=== PATIENT | female | born 1970 | race Caucasian/White ===

== ENCOUNTER 2022-03-21 15:37 | Outpatient (CLI) | payer BC, SELFPAY ==
[2022-03-21 22:07] LABS: Chloride* 99 mmol/L (96-114); Potassium* 4.6 mmol/L (3.6-5.1); Sodium* 138 mmol/L (135-149)
[2022-03-21 22:10] LABS: Blood Urea Nitrogen* 12 mg/dL (7-30); Carbon Dioxide* 30 mmol/L (20-32); Cholesterol* 221 mg/dL (90-199); Creatinine* 0.7 mg/dL (0.5-1.5); Estimated Glomerular Filt Rate 105 ml/min; Glucose* 89 mg/dL (60-115); Triglycerides* 56 mg/dL (40-149)
[2022-03-21 22:11] LABS: HDL Cholesterol* 82 mg/dL (>=50); LDL Cholesterol Calculated 128 mg/dL (<100)
== END 2022-03-21 15:38 | disposition home or self-care (01) ==
PROVIDERS: PCP Emergency Medicine; Visit Provider Emergency Medicine
DX: Z01.419 Encounter for gynecological examination (general) (routine) without abnormal findings (principal); I10 Essential (primary) hypertension; R21 Rash and other nonspecific skin eruption; L02.91 Cutaneous abscess, unspecified; Z13.6 Encounter for screening for cardiovascular disorders
CPT/HCPCS: 80048; 80061; 86618; 87070

== ENCOUNTER 2022-05-06 07:22 | Outpatient (CLI) | payer BC, SELFPAY ==
--- NOTE | 2022-05-06 07:45 | CRLHL7_ITS ---
For Patients: As a result of the Century Cures Act, medical imaging exams and procedure reports are released immediately into your electronic medical record. You may view this report before your referring provider. If you have questions, please contact your health care provider. BILATERAL SCREENING MAMMOGRAM WITH COMPUTER-AIDED DETECTION AND TOMOSYNTHESIS TECHNIQUE: CC and MLO views were obtained. These mammographic images have been obtained using full-field digital technique. These mammographic images were interpreted with the benefit of computer-aided detection. Breast Tomosynthesis was used in this interpretation. COMPARISON FILM: 04/24/21, 03/27/20, 05/25/19. FINDINGS: There are scattered areas of fibroglandular density IMPRESSION: There is no radiographic evidence for malignancy. ASSESSMENT: BI-RADS Category 1: Negative RECOMMENDATION: Routine screening mammogram in 1 year. A lay language report of this examination will be provided to the patient. Julito Salazar M.D. Diagnostic Radiologist [email or web address] MARCO/Dictated by: Julito Salazar MD @ 05/06/2022 9:51:00 AM (Electronically Signed)
== END 2022-05-06 07:23 | disposition home or self-care (01) ==
LOC: MAMMO 07:22
PROVIDERS: PCP Emergency Medicine; Visit Provider Emergency Medicine
DX: Z12.31 Encounter for screening mammogram for malignant neoplasm of breast (principal)
CPT/HCPCS: 77063; 77067

== ENCOUNTER 2022-08-06 09:49 | Outpatient (CLI) | payer BC, SELFPAY ==
[2022-08-09 08:57] LABS: Sex Hormone Binding Globulin 101 nmol/L (17-125); Testosterone Bioavailable 10.4 ng/dL (2.8-16.5); Testosterone, Free LC-MS/MS 3.7 pg/mL (1.1-5.8); Testosterone, LC-MS/MS 47 ng/dL (9-55)
== END 2022-08-06 09:50 | disposition home or self-care (01) ==
LOC: LKVREF 09:49
PROVIDERS: PCP Emergency Medicine; Visit Provider Emergency Medicine
DX: L68.0 Hirsutism (principal)
CPT/HCPCS: 84270; 84402; 84403

== ENCOUNTER 2023-05-20 17:32 | Outpatient (CLI) | payer BC, SELFPAY ==
--- NOTE | 2023-05-20 18:00 | CRLHL7_ITS ---
For Patients: As a result of the Cures Act, medical imaging exams and procedure reports are released immediately into your electronic medical record. You may view this report before your referring provider. If you have questions, please contact your health care provider. BILATERAL SCREENING MAMMOGRAM WITH COMPUTER-AIDED DETECTION AND TOMOSYNTHESIS TECHNIQUE: CC and MLO views were obtained. These mammographic images have been obtained using full-field digital technique. These mammographic images were interpreted with the benefit of computer-aided detection. Breast Tomosynthesis was used in this interpretation. COMPARISON FILM: 05/06/22, 04/24/21, 03/27/20. FINDINGS: There are scattered areas of fibroglandular density IMPRESSION: There is no radiographic evidence for malignancy. ASSESSMENT: BI-RADS Category 1: Negative RECOMMENDATION: Routine screening mammogram in 1 year. A lay language report of this examination will be provided to the patient. Julito Salazar M.D. Diagnostic Radiologist [email or web address] ELAINA/petey Transcribed: 6:44 p.mLi angelo/Dictated by: Julito Salazar MD @ 05/21/2023 1:00:00 PM (Electronically Signed)
== END 2023-05-20 17:33 | disposition home or self-care (01) ==
LOC: MAMMO 17:33
PROVIDERS: PCP Emergency Medicine; Visit Provider Emergency Medicine
DX: Z12.31 Encounter for screening mammogram for malignant neoplasm of breast (principal); Z00.00 Encounter for general adult medical examination without abnormal findings; E78.5 Hyperlipidemia, unspecified; I10 Essential (primary) hypertension; K14.6 Glossodynia
CPT/HCPCS: 77063; 77067; 80048; 80061; 82607

== ENCOUNTER 2023-07-10 08:18 | Outpatient (CLI) | payer BC, SELFPAY ==
--- OUTSIDE RECORDS SUMMARY | 2023-07-10 08:23 | XMS_ITS | Encounter Summary ---
Author Name Unknown Organization [place] Address [address] [place] [address] Care Team Providers Care Kiln Charger Name Role Phone [facility] Primary Care Provider Liz Mena PA-C Unavailable [phone] Liz Mena PA-C Unavailable [phone] Encounter Details Date Type Department Care Team (Late st Contact Info) Description 04/09/2022 MyC Medical Advice [facility] [address] [address] Liz Mena PA-C [address] [place] [address] Social History Tobacco Use Types Packs/Day Years Used Date Smoking Tobacco: Never Smokeless Tobacco: Never Alcohol Use Standard Drinks/Week Comments Not Asked 0 (1 standard drink = 0.6 oz pur e alcohol) Sex and Gender Information Value Date Recorded Sex Assigned at Not on file Gender Identity Not on file Sexual Orientation Not on file COVID-19 Exposure Response Date Recorded In the last 10 days, have yo u been in contact with someone who was confirmed or suspected to have Coronavirus/COVID-19? No / Unsure 04/12/2022 2:46 PM CDT documented as of this encounter Plan of Treatment Not on file documented as of this encounter Visit Diagnoses Not on filedocumented in this encounter Care Teams Kiln Charger Relationship Specialty Start Date End Date [facility] [address] [place] [address] PCP - General 03/25/22 Liz Mena PA-C [address] [place] [address] Physician Life Insurance Sales Dermatology 04/05/22 Liz Mena PA-C [address] [place] [address] Assigned Surgical Provider 04/13/22 documented as of this encounter
--- OUTSIDE RECORDS SUMMARY | 2023-07-10 08:23 | XMS_ITS | Referral Summary ---
Author Name Unknown Organization [place] Address [address] [place] [address] Care Team Providers Care Chauffeur Motorbus Name Role Phone [facility], [facility] Primary Care Provider Liz Mena PA-C Unavailable Liz Mena PA-C Unavailable [phone] Allergies Active Allergy Reactions Criticality Noted Date Comments Cefuroxime Axetil 03/18/2011 Amoxicillin Trihydrate 03/18/2011 Medications Medication Sig Dispensed Refills Start Date End Date Status lisinopril (PRINIVIL,ZESTRIL) 20 MG tablet Take 20 mg by mouth daily. 0 Active Etanercept (ENBREL SC) Inject 50 mg Subcutaneous every 7 days Friday 0 Active ORDER FOR DMEIndications:Foot injury Please dispense one pair of crutches. Use as directed. 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 1 tab po daily 21 tablet 0 04/12/2022 Active sulfamethoxazole-tr imethoprim (BACTRIM DS) 800-160 MG tabletIndications:P yoderma 1 tab po bid 14 tablet 0 04/16/2022 Active Active Problems Problem Noted Date Diagnosed Date Vulvar cellulitis 03/28/2022 Social History Tobacco Use Types Packs/Day Years Used Date Smoking Tobacco: Never Smokeless Tobacco: Never Tobacco Cessation:Counseling Given: Not Answered Alcohol Use Standard Drinks/Week Comments Not Asked 0 (1 standard drink = 0.6 oz pur e alcohol) Adolescent Education Answer Date Record ed Getting School Help Needed Not on file 03/30 Sex and Gender Information Value Date Recorded Sex Assigned at Not on file Gender Identity Not on file Sexual Orientation Not on file Last Filed Vital Signs Vital Sign Reading Time Taken Comments Blood Pressure 127/89 04/04/2022 7:21 AM CDT Pulse 69 04/04/2022 7:21 AM CDT Temperature 36.6 ??C (97.8 ??F) 04/04/2022 7:21 AM CD T Respiratory Rate 18 04/04/2022 7:21 AM CDT Oxygen Saturation 99% 04/04/2022 7:21 AM CDT Inhaled Oxygen Concentration - - Weight 92.1 kg (203 lb) 03/30/2022 6:35 AM CDT Height 161.3 cm (5' 3.5) 03/28/2022 1:00 PM CDT Body Mass Index 35.4 03/28/2022 1:00 PM CDT Plan of Treatment Not on file Advance Directives For more information, please contact: [phone] Latest Code Status on File Code Status Date Activated Date Inactivated Comments Full Code 03/28/2022 2:04 AM 04/04/2022 6:38 PM All basic and advanced life-sustaining interventions are performed as appropriate Question Answer Comments Code status determined by: Discussion with patient/ legal decision maker Care Teams Chauffeur Motorbus Relationship Specialty Start Date End Date [facility], [address] [address] PCP - General 03/25/22 Liz Mena PA-C [address] [place] [address] Physician Funeral Car Driver Dermatology 04/05/22 Liz Mena PA-C [address] [place] [address] Assigned Surgical Provider 04/13/22
--- OUTSIDE RECORDS SUMMARY | 2023-07-10 08:23 | XMS_ITS | Clinical Summary ---
Author Name Unknown Organization [place] Address [address] [place] [address] Care Team Providers Care Sofa Back Upholsterer Name Role Phone [facility], [facility] Primary Care Provider Liz Mena PA-C Unavailable Liz Mena PA-C Unavailable [phone] Allergies Active Allergy Reactions Criticality Noted [...] 03/28/2022 1:00 PM CDT Plan of Treatment Health Maintenance Due Date Last Done Comments ADVANCE CARE PLANNING 1970 ANNUAL REVIEW OF HM ORDERS 1971 CT COLONOGRAPHY 1971 FIT 1971 FLEX SIG 1971 HEPATITIS B IMMUNIZATION (1 of 3 - 3-dose series) 1971 YEARLY PREVENTIVE VISIT 1971 sDNA (Cologuard) 1971 COLONOSCOPY 1981 COLORECTAL CANCER SCREENING 1981 HIV SCREENING 1986 HEPATITIS C SCREENING 1989 ZOSTER IMMUNIZATION (1 of 2) 1990 Pneumococcal Vaccine: Pediatrics (0 to 5 Years) and At-Risk Patients (6 to 64 Years) (2 of 2 - PPSV23 or PCV20) 06/06/2015 04/11/2015 MAMMO SCREENING 04/20/2016 04/20/2015, 11/14, 05/05/2012, Additional history exists LIPID 2016 COVID-19 Vaccine (3 - Moderna risk series) 07/03/2021 06/05/2021, 07/28/2020 INFLUENZA VACCINE (#1) 2023 0, 05/01/2001, 05/01/2001 PHQ-2 (once per calendar year) 2023 PAP 05/08/2024 05/08/2021, 05/08/2021 DTAP/TDAP/TD IMMUNIZATION (2 - Td or Tdap) 03/25/2027 03/25/2017 HPV IMMUNIZATION Aged Out No longer e ligible based on patient's age to complete this topic IPV IMMUNIZATION Aged Out No longer e ligible based on patient's age to complete this topic MENINGITIS IMMUNIZATION Aged Out No l onger eligible based on patient's age to complete this topic RSV MONOCLONAL ANTIBODY Aged Out No l onger eligible based on patient's age to complete this topic Advance Directives For more information, please contact: [phone] Latest Code Status on File Code Status Date Activated Date Inactivated Comments Full Code 03/28/2022 2:04 AM 04/04/2022 6:38 PM All basic and advanced life-sustaining interventions are performed as appropriate Question Answer Comments Code status determined by: Discussion with patient/ legal decision maker Care Teams Sofa Back Upholsterer Relationship Specialty Start Date End Date [facility], [address] [address] PCP - General 03/25/22 Liz Mena PA-C [address] [place] [address] Physician Phosphorus Processing Supervisor Dermatology 04/05/22 Liz Mena PA-C [address] [place] [address] Assigned Surgical Provider 04/13/22
== END 2023-07-10 08:19 | disposition home or self-care (01) ==
PROVIDERS: PCP Emergency Medicine; Visit Provider Emergency Medicine
DX: N91.2 Amenorrhea, unspecified (principal); Z11.3 Encounter for screening for infections with a predominantly sexual mode of transmission
CPT/HCPCS: 83001; 86592; 86703; 86706; 86803; 87491; 87591

== ENCOUNTER 2024-04-29 08:36 | Outpatient (CLI) | payer BC, SELFPAY ==
--- OUTSIDE RECORDS SUMMARY | 2024-04-29 08:39 | XMS_ITS | Clinical Summary ---
Author Organization [place] Address [address] [place] [address] Care Team Providers Care Wash Crew Person Name Role Phone [facility] Primary Care Provider Liz Mena PA-C Unavailable [phone] Allergies Active Allergy Reactions Criticality Noted Date Comments Cefuroxime Axetil 03/18/2011 Amoxicillin Trihydrate 03/18/2011 Medications lisinopril (PRINIVIL,ZESTRI L) 20 MG tablet Take 20 mg by mouth daily. Active Etanercept (ENBREL SC) Inject 50 mg Subcutaneous every 7 days Friday Active ORDER FOR DMEIndications:F oot injury Please dispense one pair of crutches. Use as directed. 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 1 tab po daily 21 tablet 2 Active sulfamethoxazole -trimethoprim (BACTRIM DS) 800-160 MG tabletIndication s:Pyoderma 1 tab po bid 14 tablet 2 Active Active Problems Problem Noted Date Diagnosed Date Vulvar cellulitis 03/28/2022 Social History Tobacco Use Types Packs/Day Years Used Date Smoking Tobacco: Never Smokeless Tobacco: Never Tobacco Cessation:Counseling Given: Not Answered Alcohol Use Standard Drinks/Week Comments Not Asked 0 (1 standard drink = 0.6 oz pur e alcohol) Adolescent Education Answer Date Record ed Getting School Help Needed Not on file 03/30 Comments No Sex and Gender Information Value Date Recorded Sex Assigned at Not on file Legal Sex Female 3:14 AM SCIENTIFIC EDITOR Gender Identity Not on file Sexual Orientation [...] COLONOGRAPHY 1971 FIT 1971 FLEX SIG 1971 YEARLY PREVENTIVE VISIT 1971 sDNA (Cologuard) 1971 COLONOSCOPY 1981 COLORECTAL CANCER SCREENING 1981 HIV SCREENING 1986 HEPATITIS C SCREENING 1989 HEPATITIS B IMMUNIZATION (1 of 3 - 19+ 3-dose series) 1990 ZOSTER IMMUNIZATION (1 of 2) 1990 LIPID 2011 Pneumococcal Vaccine: Pediatrics (0 to 5 Years) and At-Risk Patients (6 to 64 Years) (2 of 2 - PPSV23 or PCV20) 06/06/2015 04/11/2015 MAMMO SCREENING 04/20/2017 04/20/2015, 11/14, 05/05/2012, Additional history exists COVID-19 Vaccine (3 - Moderna risk series) 07/03/2021 06/05/2021, 07/28/2020 PHQ-2 (once per calendar year) 2023 INFLUENZA VACCINE (#1) 2024 0, 05/01/2001, 05/01/2001 PAP 05/08/2024 05/08/2021, 05/08/2021 GLUCOSE 03/31/2025 03/31/2022, 03/16, 03/27/2022, Additional history exists DTAP/TDAP/TD IMMUNIZATION (2 - Td or Tdap) 03/25/2027 03/25/2017 RSV VACCINE (1 - 1-dose 75+ series) 2046 HPV IMMUNIZATION Aged Out No longer e ligible based on patient's age to complete this topic MENINGITIS IMMUNIZATION Aged Out No l onger eligible based on patient's age to complete this topic RSV MONOCLONAL ANTIBODY Aged Out No l onger eligible based on patient's age to complete this topic Procedures Procedure Name Priority Date/Time Associated Diagnosis Comments BASIC METABOLIC PANEL Routine 03/31/2022 6:22 AM CDT MA DIAGNOSTIC BILATERAL W/ CAROLE Routine 04/20/2015 2:12 PM SCIENTIFIC EDITOR Breast pain from Last 3 Months or Most Recently Relevant to Health Maintenance Results * (ABNORMAL) Basic metabolic panel (03/31/2022 6:22 AM CDT) Sodium 140 136 - 145 mmol/L 03/31/2022 7:28 AM CDT [facility] Potassium 4.2 3.4 - 5.3 mmol/L 03/31/2022 7:28 AM CDT [facility] Chloride 105 98 - 107 mmol/L 03/31/2022 7:28 AM CDT [facility] Carbon Dioxide (CO2) 29 22 - 29 mmol/L 03/31/2022 7:28 AM CDT [facility] Anion Gap 6(L) 7 - 15 mmol/L 03/31/2022 7:28 AM CDT [facility] Urea Nitrogen 7.2 6.0 - 20.0 mg/dL 03/31/2022 7:28 AM CDT LABORATORY Creatinine 0.78 0.51 - 0.95 mg/dL 03/31/2022 7:28 AM CDT LABORATORY Calcium 8.7 8.6 - 10.0 mg/dL 03/31/2022 7:28 AM CDT LABORATORY Glucose 86 70 - 99 mg/dL 03/31/2022 7:28 AM CDT [facility] GFR Estimate >90 >60 mL/min/1.7 3m2 03/31/2022 7:28 AM CDT LABORATORY Comment:Effective May 172020 eGFRcr in adults is calculated using the 2020 CKD-EPI creatinine equation which includes age and gender (Mack et al., NEJM, DOI: 10.1056/RQWAcg8188424) Blood STRUCTURE OF LEFT UPPER LIMB / Unknown Venipuncture / Unknown 03/31/2022 6:22 AM CDT 03/31/2022 7:02 AM CDT us Misai Daniella Mederos MD LAB - BLOOD ORDERABLES Valentine l Result LABORATORY [facility] [address] Lab (1st floor, no room number) [place] [address], [facility] [phone] * MA Diagnostic Bilateral w/Carole (04/20/2015 2:12 PM SCIENTIFIC EDITOR) Anatomical Region Laterality Modality Breast Bilateral Mammography Impressions 04/20/2015 2:21 PM SCIENTIFIC EDITOR IMPRESSION: BI-RADS CATEGORY: 1 - ??NEGATIVE. RECOMMENDED FOLLOW-UP: Annual Mammography. ENEDELIA FLORES MD Narrative 04/20/2015 2:21 PM SCIENTIFIC EDITOR MA DIAGNOSTIC BILATERAL W/ CAROLE, US BREAST LEFT LIMITED 1-3 QUADRANTS 04/20/2015 2:12 PM HISTORY: ??Pain in left breast. No palpable lumps. COMPARISON: ??11/23/13, 08/08/10 TECHNIQUE: ??Bilateral digital mammography with CAD is performed as well as bilateral DVT. In addition, directed left breast ultrasound was done. BREAST DENSITY: Scattered fibroglandular densities. BILATERAL MAMMOGRAM/DBT: ??No suspicious findings of malignancy. LEFT BREAST ULTRASOUND: Directed sonography is performed in the lateral half of the left breast as well as behind the nipple. No focal finding is seen. The patient should followup with her physician regarding her breast pain if it does not subside. Kehinde Urbina MD IMG MAMMOGRAPHY ORDERABLES F inal Result from Last 3 Months or Most Recently Relevant to Health Maintenance Insurance [facility] OUT OF STATE [facility] CLAIMS MANAGEMENT Advance Directives For more information, please contact: [phone] * Full Code (Latest Code Status on File) Date Activated Date Inactivated Comments 03/28/2022 2:04 AM 04/04/2022 6:38 PM All basic and advanced life-sustaining interventions are performed as appropriate Question Answer Comments Code status determined by: Discussion with patie nt/ legal decision maker Care Teams Wash Crew Person Relationship Specialty Start Date End Date [facility], [address] [address] PCP - General 03/25/22 Liz Mena, TERA [address] [place] [address] Physician [employer] Instruments Inspector Dermatology 04/05/22
--- OUTSIDE RECORDS SUMMARY | 2024-04-29 08:39 | XMS_ITS | Referral Summary ---
Author Organization [place] Address [address] [place] [address] Care Team Providers Care Pals Specialist Name Role Phone [facility] Primary Care Provider Liz Mena PA-C Unavailable [phone] Allergies Active Allergy Reactions Criticality Noted Date [...] on file Legal Sex Female 3:14 AM CREDIT AND COLLECTION MANAGER Gender Identity Not on file Sexual Orientation [...] CDT Plan of Treatment Not on file Procedures Procedure Name Priority Date/Time Associated Diagnosis Comments BASIC METABOLIC PANEL Routine 03/31/2022 6:22 AM CDT MA DIAGNOSTIC BILATERAL W/ CAROLE Routine 04/20/2015 2:12 PM CREDIT AND COLLECTION MANAGER Breast pain from Last 3 Months or Most Recently Relevant to Health Maintenance Results * (ABNORMAL) Basic metabolic panel (03/31/2022 6:22 AM CDT) Sodium 140 136 - 145 mmol/L 03/31/2022 7:28 AM CDT LABORATORY Potassium 4.2 3.4 - 5.3 mmol/L 03/31/2022 7:28 AM CDT [facility] Chloride 105 98 - 107 mmol/L 03/31/2022 7:28 AM CDT LABORATORY Carbon Dioxide (CO2) 29 22 - 29 mmol/L 03/31/2022 7:28 AM CDT LABORATORY Anion Gap 6(L) 7 - 15 mmol/L 03/31/2022 7:28 AM CDT LABORATORY Urea Nitrogen 7.2 6.0 - 20.0 mg/dL 03/31/2022 7:28 AM CDT LABORATORY Creatinine 0.78 0.51 - 0.95 mg/dL 03/31/2022 7:28 AM CDT LABORATORY Calcium 8.7 8.6 - 10.0 mg/dL 03/31/2022 7:28 AM CDT LABORATORY Glucose 86 70 - 99 mg/dL 03/31/2022 7:28 AM CDT LABORATORY GFR Estimate >90 >60 mL/min/1.7 3m2 03/31/2022 7:28 AM CDT LABORATORY Comment:Effective May 172020 eGFRcr in adults is calculated using the 2020 CKD-EPI creatinine equation which includes age and gender (Mack et al., NEJ, DOI: 10.1056/NICShg4900530) Blood STRUCTURE OF LEFT UPPER LIMB / Unknown Venipuncture / Unknown 03/31/2022 6:22 AM CDT 03/31/2022 7:02 AM CDT Elen Mederos MD LAB - BLOOD ORDERABLES Valentine l Result LABORATORY [facility] Lab [address] Lab (1st floor, no room number) [place] [address], [facility] [phone] * MA Diagnostic Bilateral w/Carole (04/20/2015 2:12 PM CREDIT AND COLLECTION MANAGER) Anatomical Region Laterality Modality Breast Bilateral Mammography Impressions 04/20/2015 2:21 PM CREDIT AND COLLECTION MANAGER IMPRESSION: BI-RADS CATEGORY: 1 - ??NEGATIVE. RECOMMENDED FOLLOW-UP: Annual Mammography. ENEDELIA FLORES MD Narrative 04/20/2015 2:21 PM CREDIT AND COLLECTION MANAGER MA DIAGNOSTIC BILATERAL W/ CAROLE, US BREAST [...] breast pain if it does not subside. us Kehinde Urbina MD IMG MAMMOGRAPHY ORDERABLES F inal Result from Last 3 Months or Most Recently Relevant to Health Maintenance Insurance [facility] OUT OF STATE [facility] CLAIMS MANAGEMENT Advance Directives For more information, please contact: [phone] * Full Code (Latest Code Status on File) Date Activated Date Inactivated Comments 03/28/2022 2:04 AM 04/04/2022 6:38 PM All basic and advanced life-sustaining interventions are performed as appropriate Question Answer Comments Code status determined by: Discussion with patie nt/ legal decision maker Care Teams Pals Specialist Relationship Specialty Start Date End Date [address] [address] PCP - General 03/25/22 Liz Mena, PALuciaC [address] [place] [address] Physician Meat Soaker Dermatology 04/05/22
--- OUTSIDE RECORDS SUMMARY | 2024-04-29 08:40 | XMS_ITS | Encounter Summary ---
Author Organization [place] Address [address] [place] [address] Care Team Providers Care Section Leader Screen Printing Name Role Phone [facility] Primary Care Provider Liz Mena PA-C Unavailable [phone] Liz Mena PA-C Unavailable [phone] Encounter Details Date Type Department Care Team (Late st Contact Info) Description 04/09/2022 MyC Medical Advice [facility] [address] [address] Liz Mena PA-C [address] [place] [id number] Social History Tobacco Use Types Packs/Day Years Used Date Smoking Tobacco: Never Smokeless Tobacco: Never Alcohol Use Standard Drinks/Week Comments Not Asked 0 (1 standard drink = 0.6 oz pur e alcohol) Comments No Sex and Gender Information Value Date Recorded Sex Assigned at Not on file Legal Sex Female 3:14 AM HOST COORDINATOR Gender Identity Not on file Sexual Orientation [...] on filedocumented in this encounter Care Teams Section Leader Screen Printing Relationship Specialty Start Date End Date Clinic, [facility] [address] [place] [address] PCP - General 03/25/22 Liz Mena PA-C [address] [place] [address] Physician Product Management Analyst Dermatology 04/05/22 Liz Mena PA-C [address] [place] [address] Assigned Surgical Provider 04/13/22 documented as of this encounter
== END 2024-04-29 08:37 | disposition home or self-care (01) ==
PROVIDERS: PCP Emergency Medicine; Visit Provider Emergency Medicine
DX: E53.8 Deficiency of other specified B group vitamins (principal); I10 Essential (primary) hypertension; E78.5 Hyperlipidemia, unspecified
CPT/HCPCS: 80048; 80061; 82607

== ENCOUNTER 2024-11-23 14:12 | Outpatient (CLI) | payer BC, SELFPAY | END 2024-11-23 14:13 | disposition home or self-care (01) | LOC: LKVREF 14:13 | PROVIDERS: PCP Emergency Medicine; Visit Provider Emergency Medicine | DX: R07.9 Chest pain, unspecified (principal) | CPT/HCPCS: 86140 ==

== ENCOUNTER 2024-12-02 12:48 | Outpatient (CLI) | payer BC, SELFPAY ==
--- OUTSIDE RECORDS SUMMARY | 2024-11-11 04:46 | XMS_ITS ---
Author Organization [place] [employer] [facility] e Address [address] [place] [address] Care Team Providers Care Supervisor Laboratory Animal Facility Name Role Phone Sylvie Abel Primary Care Provider Unavaila Loretta Johnson Unavailable [phone] None, No PCP Unavailable Unavailable REASON FOR VISIT Lab Orders Needed Encounters Encounter Location Date Provider Diagnosis [facility] [address] [place] [address] 11/11/2024 Loretta Philippe Plan Of Treatment No Information Progress Notes * Juanjo FUNESOB: 2 (54 yo F)Acc No.[id number]:11/11/2024 Patient: Judith LEYVA :1970 A ge:54 Y S ex:Female Address:[address] [facility] [place] [place] [address] Subjective: * Chief Complaints: * L ab Orders Needed * Medical History: * Surgical History: * Hospitalization/Major Diagno stic Procedure: * Medications: Objective: * Vitals: * Physical Examination: Assessment: Plan: * Treatment: * Procedure Codes: * true * Date: Generated for Printi ng/Faxing/eTransmitting on: 0 12/02/2024 01:44 PM CDT
--- OUTSIDE RECORDS SUMMARY | 2024-11-15 05:45 | XMS_ITS ---
Author Organization [facility] e Address [address] [place] [address] Care Team Providers Care Icing Machine Operator Name Role Phone Sylvie Abel Primary Care Provider UnavailLoretta Cooper Unavailable [phone] None, No PCP Unavailable Unavailable Medications Medication SIG (Take, Route, Frequency, Duration) Notes Start Date End Date Status Prometrium 100 MG 2 capsules at bedtim e Orally nightly for 90 days 08/19/2023 Active Lisinopril 20 MG Oral for 90 Days Active Orencia ClickJect 125 MG/ML Subcutaneous for 28 Days Active Triamcinolone Acetonide 0.5 % External for 30 Days Active Estradiol 0.05 MG/24HR 1 application to skin Transdermal Two times a Week for 90 days 08/19/2023 Active Encounters Encounter Location Date Provider Diagnosis [facility] [address] [place] [address] 11/15/2024 Loretta Philippe Plan Of Treatment No Information Progress Notes * Juanjo FUNESOB: 2 (54 yo F)Acc No.[id number]:11/15/2024 Patient: Judith LEYVA Provider: Simba Philippe CNP :1970 A ge:54 Y S ex:Female Date:11/15/2024 [id number] Pcp:Sylvie Abel Subjective: * Chief Complaints: * * Medical History: * Medications: T aking Lisinopril 20 MG Tablet Oral , Taking Orencia ClickJect 125 MG/ML Solution Auto-injector Subcutaneous , Taking Triamcinolone Acetonide 0.5 % Cream External , Taking Estradiol 0.05 MG/24HR Patch Twice Weekly 1 application to skin Transdermal Two times a Week , Taking Prometrium 100 MG Capsule 2 capsules at bedtime Orally nightly Objective: * Vitals: Assessment: Plan: * Treatment: * Images: Billing Information: * Visit Code: * Procedure Codes: * Electronic signature of Alex Philippe CNP on 12/02/2024 at 01:44 PM CDT Sign off status: Pending * Provider: Simba Philippe CNP Date: 11/15/2024 Generated for Kaycee caal/Librado/Chiki on: 12/02/2024 01:44 PM CDT
--- OUTSIDE RECORDS SUMMARY | 2024-11-22 03:00 | XMS_ITS ---
Author Organization [facility] Address [address] [place] [address] Care Team Providers Care Beekeeper Name Role Phone Sylvie Abel Primary Care Provider Unavaila ble Jose Martin Loretta Unavailable [phone] None, No PCP Unavailable Unavailable Allergies Allergen (clinical drug ingredient) Drug/Non Drug Allergy documented on EMR Reaction Allergy Type Onset Date Status Ceftin Unknown Drug Allergy Active Trimox Unknown Drug Allergy Active Results Component Value Reference Range Notes THINPREP TIS AND HPV mRNA E6 /E7 W/ REFLEX 16, 18/45HPV Reviewed date:11/24/2024 05:54:58 PM Interpretation: Performing Lab:[facility]ug[address] [facility] Center[facility]jikjwnioBK[address] Javon Bal Notes/Report: 0 CLINICAL INFORMATION: None g iven LMP: MENOPAUSE PREV. PAP: 2010 WNL PREV. BX: N/A SOURCE: Cervix, Endocer vix STATEMENT OF ADEQUACY: Satisfactory for evaluation. Endocervical/transformation zone component absent. INTERPRETATION/RESULT: Cytology Results: Negative for intraepithelial lesion or malignancy. COMMENT: This Pap test has been evaluated with computer assisted technology. NEUROLOGY MANAGER: ALIVIA TREADWELL(ASCP) CT Screening Location: [facility] [employer] [place] [id number] COMMENT EXPLANATORY NOTE: The Pap is a screening test for cervical cancer. It is not a diagnostic test and is subject to false negative and false positive results. It is most reliable when a satisfactory sample, regularly obtained, is submitted with relevant clinical findings and history, and when the Pap result is evaluated along with historic and current clinical information. HPV mRNA E6/E7 Not Detected Not Detected Methodology: Chain Maker Hand-Mediated Amplification This assay detects E6/E7 viral messenger RNA (mRNA) from 14 high-risk HPV types (16,18,31,33,35,39,45,51,52,56 ,58,59,66,68). Cervical sources are required for HPV testing. If a vaginal source from a patient who has had a total hysterectomy with removal of cervix was submitted, please contact the testing laboratory for alternative testing options. For additional information, please refer to http://[email or web address].THE FASHION/faq/JDL136s7 (This link if provided for information/ educational purposes only.) ESTRADIOL Reviewed date:11/23/2024 10:12:14 AM Interpretation: Performing Lab:[facility] [facility] [id number], Smart BalloonDwlwUI[address] Tigre Diaz Notes/Report: ESTRADIOL 38 Reference Range Follicular Phase: 19-144 Mid-Cycle: 64-357 Luteal Phase: 56-214 Postmenopausal: < or = 31 Reference range established on post-pubertal patient population. No pre-pubertal reference range established using this assay. For any patients for whom low Estradiol levels are anticipated (e.g. males, pre-pubertal children and hypogonadal/post-menopausal females), the iwi [facility] Estradiol, Ultrasensitive, LCMSMS assay is recommended (order code 32560). Please note: patients being treated with the drug fulvestrant (Faslodex(R)) have demonstrated significant interference in immunoassay methods for estradiol measurement. The cross reactivity could lead to falsely elevated estradiol test results leading to an inappropriate clinical assessment of estrogen status. iwi order code [id number]-[id number], Ultrasensitive LC/MS/MS demonstrates negligible cross reactivity with fulvestrant. DHEA SULFATE Reviewed date:11/23/2024 10:12:14 AM Interpretation: Performing Lab:[facility] [address], [place] FoodsMpoeRN[address] Tigre Diaz Notes/Report: DHEA SULFATE 145 5-167 mcg/dL FSH Reviewed date:11/23/2024 10:12:14 AM Interpretation: Performing Lab:[facility], [place] FoodsVnupLN[address] Tigre Diaz Notes/Report: FSH 45.6 Reference Range Follicular Phase 2.5-10.2 Mid-cycle Peak 3.1-17.7 Luteal Phase 1.5- 9.1 Postmenopausal 23.0-116.3 Testosterone, Total () Reviewed date:11/23/2024 10:12:14 AM Interpretation: Performing Lab: Notes/Report: Access 2 ([id number]), [facility] Sex Hormone Binding Globulin () Reviewed date:11/23/2024 10:12:14 AM Interpretation: Performing Lab: Notes/Report: Access 2 ([id number]), [facility] Testosterone, Free () Reviewed date:11/23/2024 10:12:14 AM Interpretation: Performing Lab: Notes/Report: Access 2 ([id number]), [facility] REASON FOR VISIT Annual + Pap & HRT labs, Mammo-03/30/24 negative, LMP-menopause, BC-none, CW.DAYANARA Medications Medication SIG (Take, Route, Frequency, Duration) Notes Start Date End Date Status Orencia ClickJect 125 MG/ML Subcutaneous for 28 Days Active Triamcinolone Acetonide 0.5 % External for 30 Days Active Prometrium 100 MG 2 capsules at bedtim e Orally nightly for 90 days 08/19/2023 Active Estradiol 0.05 MG/24HR 1 application to skin Transdermal Two times a Week for 90 days 08/19/2023 Active Lisinopril 20 MG Oral for 90 Days 10mg Active Vital Signs Blood pressure systolic 100 mm Hg 11/23/19 25 Blood pressure diastolic 70 mm Hg 025 Height 63 in 11/22/2024 Weight 242.2 lbs 11/22/2024 BMI 42.9 kg/m2 11/22/2024 Encounters Encounter Location Date Provider Diagnosis [facility] [address] [id number] 11/22/2024 Loretta Philippe Menopausal and postmenopausal disorder N95.9 ; Encounter for annual routine gynecological examination Z01.419 and Chest pain R07.9 Assessments Encounter Date Diagnosis (ICD Code) Assessment Notes Treatment Notes Treatment Clinical Notes Section Notes 11/22/2024 Menopausal and postmenopausal disorder (ICD-10 - N95.9) HRT labs today For now patient to continue on estradiol patch and progesterone orally 11/22/2024 Encounter for annual routine gynecological examination (ICD-10 - Z01.419) Pap today Mammogram up to date 11/22/2024 Chest pain (ICD-10 - R07.9) Discussed this constellation of symptoms is very concerning for a possible heart attack. I advised patient to go directly to the ER. She agrees to call her PCP as soon as this appointment is over and discuss with triage. 11/22/2024 Other Plan Of Treatment Medication Medication Name Sig Start Date Stop Date Notes Prometrium 100 MG 2 capsules at bedtim e Orally nightly for 90 days 08/19/2023 Estradiol 0.05 MG/24HR 1 application to skin Transdermal Two times a Week for 90 days 08/19/2023 Treatment Notes Assessment Notes Menopausal and postmenopausal disorder HRT labs today For now patient to continue on estradiol patch and progesterone orally Encounter for annual routine gynecological examination Pap today Mammogram up to date Chest pain Discussed this const ellation of symptoms is very concerning for a possible heart attack. I advised patient to go directly to the ER. She agrees to call her PCP as soon as this appointment is over and discuss with triage. Progress Notes * Juanjo FUNESOB: 2 (54 yo F)Acc No.[id number]:11/22/2024 Progress Notes Patient: Judith LEYVA Provider: Simba Philippe CNP :1970 A ge:54 Y S ex:Female Date:11/22/2024 Address:[address] [place], [place] [id number] Pcp:Sylvie Abel Subjective: * Chief Complaints: * A nnual + Pap & HRT labsMammo-03/30/24 [id number] * HPI: D epression Screening: PHQ-9 L ittle interest or pleasure in doing things?Not at all F eeling down, depressed, or hopeless N ot at all T rouble falling or staying asleep, or sleeping too much S everal days F eeling tired or having little energy S everal days P oor appetite or overeating S everal days F eeling bad about yourself or that you are a failure, or have let yourself or your family down N ot at all T rouble concentrating on things, such as reading the newspaper or watching television N ot at all M oving or speaking so slowly that other people could have noticed; or the opposite, being so fidgety or restless that you have been moving around a lot more than usual N ot at all T houghts that you would be better off or of hurting yourself in some way N ot at all T otal Score 3 I nterpretation M inimal Depression * General: 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 She is a hormone therapy patient with our clinic. Pap: 2021 nilm hpv neg Mammogram: 03/30/2024 negative Periods: menopausal Hormone therapy: Estradiol patch 0.05mg twice weekly, progesterone 200mg Pt is working out regularly. Lately has had increased hunger. Notes last night awoke with horrible ache in her arm, went into her back and chest. I felt like a flutter in my heart. Mccool a bit overheated. Got out of bed to bathroom. the sensation happened again. Took antacids and was finally able to go back to sleep. Describes the ache came out of nowhere and very intense. Throughout the weekend has had dull aching pain in the arm/chest/back that is coming and going. 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 She didn't call her primary and has not been seen for this issue. Thought maybe the pain was due to weight lifting. Denies excessive stress or anxiety.? Last few years notes more pain in gums. Judith has been dating a new parnter almost a year. did have STI screen last fall with PCP. * ROS: G eneral/Constitutional: Patient denies f ever, chills, change in appetite. ? R espiratory: Patient denies c ough, shortness of breath. ? B reast: Patient denies b reast lump, breast pain, nipple discharge.? C ardiovascular: Patient denies c hest pain, irregular heartbeat, palpitations. G astrointestinal: Patient denies n ausea, vomiting, constipation, diarrhea.? W omen Only: Patient denies m enorrhagia, metrorrhagia, irregular menses, amenorrhea, dysmenorrhea, painful intercourse, vaginal discharge. G enitourinary: Patient denies f requency, urgency, dysuria, hematuria, stress incontinence, urge incontinence. P sychiatric: Patient denies a nxiety, depression, difficulty sleeping.? 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 S exually Tranmitted Disease (STD) N one. H /O Menopause. D enies H/O Abnormal Pap Smear. D enies H/O Colposcopy. D ate of Last Period: P ostmenopausal. B irth Control: N one. H /O ovarian cyst. * OB History: G PAL: G 0. * Surgical History: t onsillectomy 1978Gall Bladder Removal 1985 * Hospitalization/Major Diagno stic Procedure: D enies Past Hospitalization * Family History: M ateluís Grand Mother: diagnosed with Breast Cancer. F ather: diagnosed with Hypertension. S iblings: diagnosed with Hypertension. * Medications: T akingLisinopril 20 MG Tablet Oral , Notes to Pharmacist: 10mgOrencia ClickJect 125 MG/ML Solution Auto-injector Subcutaneous Triamcinolone Acetonide 0.5 % Cream External Estradiol 0.05 MG/24HR Patch Twice Weekly 1 application to skin Transdermal Two times a Week Prometrium 100 MG Capsule 2 capsules at bedtime Orally nightly Medication List reviewed and reconciled with the patientTaking Lisinopril 20 MG Tablet Oral , Notes to Pharmacist: 10mgTaking Orencia ClickJect 125 MG/ML Solution Auto-injector Subcutaneous Taking Triamcinolone Acetonide 0.5 % Cream External Taking Estradiol 0.05 MG/24HR Patch Twice Weekly 1 application to skin Transdermal Two times a Week Taking Prometrium 100 MG Capsule 2 capsules at bedtime Orally nightly Medication List reviewed and reconciled with the patient * Allergies: T Darryl[Allergies Verified] Objective: * Vitals: H t: 63 in, Wt:242.2lbs, BP:100/70mm Hg, BMI:42.9Index. * Examination: * General Examination: GENERAL APPEARANCE: a lert, in no acute distress, pleasant, severely obese middle aged white female. NECK/THYROID: normal, no thyroid nodules, no thyromegaly.? HEART: RRR, no murmurs. LUNGS: clear to auscultation bilaterally. BREASTS: no dimpling, no discharge, no masses palpable bilaterally, nontender. ABDOMEN: normal, no hepatosplenomegaly, no masses palpable, nontender. WIPER BLENDER: l abia without lesions or masses, vaginal mucosa pink, no lesions, cervix without lesions, nontender, uterus anteverted, non tender, adnexa nontender, perineum within normal limits, anus within normal limits. PSYCH: alert, oriented, judgement and insight good, mood/affect full range, speech clear. Assessment: * Assessment: 1. E ncounter for annual routine gynecological examination - Z01.419 (Primary) 2 . M enopausal and postmenopausal disorder - N95.9 3 . C hest pain - R07.9? Plan: * Treatment: Value Reference Range H PV mRNA E6/E7 Not Detected Not Detected - * Loretta Philippe 11/24/2024 05:54:47 PM CDT >This lab was reviewed by Loretta Philippe on 11/24/2024 at 17:54 PM CDT Notes: Pap today Mammogram up to date??2.?Menopausal and postmenopausal disorder? Refill Estradiol Patch Twice Weekly, 0.05 MG/24HR, 1 application to skin, Transdermal, Two times a Week, 90 days, 24 Patch, Refills 5;?Refill Prometrium Capsule, 100 MG, 2 capsules at bedtime, Orally, nightly, 90 days, 180, Refills 5.?LAB: ESTRADIOL (Collection Date & Time - 11/22/2024 08:37 AM)* Value Reference Range E STRADIOL 38 - pg/mL * Loretta Philippe 11/23/2024 10:11:44 AM CDT > no surprises Judith, continue with current dose of medication.This lab was reviewed by Loretta Philippe on 11/23/2024 at 10:12 AM CDT ?LAB: DHEA SULFATE (Collection Date & Time - 11/22/2024 08:37 AM)* Value Reference Range D HEA SULFATE 145 5-167 - mcg/dL * Loretta Philippe 11/23/2024 10:11:44 AM CDT > no surprises Judith, continue with current dose of medication.This lab was reviewed by Loretta Philippe on 11/23/2024 at 10:12 AM CDT ?LAB: FSH (Collection Date & Time - 11/22/2024 08:37 AM)* Value Reference Range F SH 45.6 - mIU/mL * Loretta Philippe 11/23/2024 10:11:44 AM CDT > no surprises Juidth, continue with current dose of medication.This lab was reviewed by Loretta Philippe on 11/23/2024 at 10:12 AM CDT ?LAB: Sex Hormone Binding Globulin (IH) (Collection Date & Time - 11/22/2024 01:06 PM)* Value Reference Range S HBG 71 16-126 - nmol/L * Loretta Philippe 11/23/2024 10:11:44 AM CDT > no surprises Judith, continue with current dose of medication.This lab was reviewed by Loretta Philippe on 11/23/2024 at 10:12 AM CDT ?LAB: Testosterone, Free (IH) (Collection Date & Time - 11/22/2024 01:19 PM) * Value Reference Range F r Testo 2.43 0.20 to 5.50 - pg/mL * Loretta Philippe 11/23/2024 10:11:44 AM CDT > no surprises Judith, continue with current dose of medication.This lab was reviewed by Loretta Philippe on 11/23/2024 at 10:12 AM CDT ?LAB: Testosterone, Total (IH) (Collection Date & Time - 11/22/2024 01:20 PM)* Value Reference Range T estosterone, Total (IH) 50 0-75 - ng/dL * Loretta Philippe 11/23/2024 10:11:44 AM CDT > no surprises Judith, continue with current dose of medication.This lab was reviewed by Loretta Philippe on 11/23/2024 at 10:12 AM CDT Notes: HRT labs today For now patient to continue on estradiol patch and progesterone orally??3.?Chest pain? Notes: Discussed this constellation of symptoms is very concerning for a possible heart attack. I advised patient to go directly to the ER. She agrees to call her PCP as soon as this appointment is over and discuss with triage. ?? * Procedure Codes: 8 2627 DEHYDROEPIANDROSTERONE, Modifiers: 90 36665 ASSAY OF ESTRADIOL, Modifiers: 90 16662 GONADOTROPIN (FSH), Modifiers: 90 37166 ASSAY OF SEX HORMONE GLOBUL - [id number] ASSAY OF TESTOSTERONE - [id number] ASSAY OF TOTAL TESTOSTERONE - [id number] VENIPUNCT, ROUTINE*88186 CYTOPATH C/V AUTO FLUID REDO, Modifiers: 90 43844 HPV HIGH-RISK TYPES, Modifiers: 90 13102 BRIEF EMOTIONAL/BEHAV ASSMT, Modifiers: 59 * Preventive Medicine: YOUR PREVENTIVE WELLNESS PLAN: B reast Cancer Screening (Mammogram): The Recommended Frequency is: A nnually for HRT My last mammogram was done on: 1 Negative C ervical Cancer Screening (Pap Smear): The Recommended Frequency is: E very five years, ages 30-65 with HPV testing My last Pap smear was done on: 0 06/16/2021 Normal, per pt O steoporosis Screening (Bone Density Measurement): My last bone density was done on: N ever, Under 65yr C olorectal Cancer Screening: Last Done Colonoscopy 0 09/14/2021 D epression Screening: Screening for depression was last done on: 0 11/22/2024 PHQ-9 Care Plan: * Problems: * Images: Billing Information: * Visit Code: 85872 Preventive Care Est Pt. Age 40-64. * Procedure Codes: 64312 DEHYDROEPIANDROSTERONE. Modifiers: 90 64356 ASSAY OF ESTRADIOL. Modifiers: 90 76340 GONADOTROPIN (FSH). Modifiers: 90 94893 ASSAY OF SEX HORMONE GLOBUL - IH. 41417 ASSAY OF TESTOSTERONE - IH. 28890 ASSAY OF TOTAL TESTOSTERONE - IH. 54566 VENIPUNCT, ROUTINE*. 19155 CYTOPATH C/V AUTO FLUID REDO. Modifiers: 90 65121 HPV HIGH-RISK TYPES. Modifiers: 90 09599 BRIEF EMOTIONAL/BEHAV ASSMT. Modifiers: 59 * Sign off status: Completed true * Provider: Simba Philippe CNP Date: 0 11/22/2024 Generated for Kaycee caal/Librado/Tomekaitting on: 0 12/02/2024 01:45 PM CDT History and Physical Notes * HPI (History of Present Illness) Category Sub-Category Detail Notes Category Not es Depression Screening PHQ-9 Little inte rest or pleasure in doing things: Not at all Feeling down, depressed, or hopeless: No t at all Trouble falling or staying asleep, or sl eeping too much: Several days Feeling tired or having little energy: S everal days Poor appetite or overeating: Several day s Feeling bad about yourself o r that you are a failure, or have let yourself or your family down: Not at all Trouble concentrating on thi ngs, such as reading the newspaper or watching television: Not at all Moving or speaking so slowly that other people could have noticed; or the opposite, being so fidgety or restless that you have been moving around a lot more than usual: Not at all Thoughts that you would be b momo off or of hurting yourself in some way: Not at all Total Score: 3 Interpretation: Minimal Depression *General 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 She is a hormone therapy patient with our clinic. Pap: 2021 nilm hpv neg Mammogram: 03/30/2024 negative Periods: menopausal Hormone therapy: Estradiol patch 0.05mg twice weekly, progesterone 200mg Pt is working out regularly. Lately has had increased hunger. Notes last night awoke with horrible ache in her arm, went into her back and chest. I felt like a flutter in my heart. Mccool a bit overheated. Got out of bed to bathroom. the sensation happened again. Took antacids and was finally able to go back to sleep. Describes the ache came out of nowhere and very intense. Throughout the weekend has had dull aching pain in the arm/chest/back that is coming and going. 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 She didn't call her primary and has not been seen for this issue. Thought maybe the pain was due to weight lifting. Denies excessive stress or anxiety. Last few years notes more pain in gums. Judith has been dating a new parnter almost a year. did have STI screen last fall with PCP. Examination Category Sub-Category Detail Notes Category Not es *General Examination GENERAL APPEARANCE: alert, in no acute distress, pleasant, severely obese middle aged white female NECK/THYROID: normal, no thyroid n odules, no thyromegaly HEART: RRR, no murmurs LUNGS: clear to auscultatio n bilaterally ABDOMEN: normal, no hepatospl enomegaly, no masses palpable, nontender BREASTS: no dimpling, no disc harge, no masses palpable bilaterally, nontender PSYCH: alert, oriented, riri gement and insight good, mood/affect full range, speech clear WIPER BLENDER: labia without lesion s or masses, vaginal mucosa pink, no lesions, cervix without lesions, nontender, uterus anteverted, non tender, adnexa nontender, perineum within normal limits, anus within normal limits
[2024-12-02 13:38] VITALS: BP 172/98; PULSE 92; RESP 16
--- NOTE | 2024-12-02 13:38 | W.PM.STED ---
Stress Test Note Date Date Seen: 12/02/24 Date of test: 12/02/24 Providers Primary care provider: Sylvie Abel Stress test physician: Paula Milian Stress Test Note Stress test ordered: Stress Echo Indication for test: Chest pain Stress test medicine: None Results discussion: Resting EKG: Sinus rhythm, 73 beats per minute. Some artifact on this EKG. Flipped T-waves lead V1 without any acute ST segment change. Resting blood pressure: 132/90 Stress test: Patient consented on exercise treadmill stress echo following standard Kristofer protocol, she agrees to proceed. Patient exercised to 7 minutes 2 seconds, requesting to stop due to dyspnea and meeting exercise capacity. She had a quiver lint of 8.5 Mets at that level of activity. She achieved a maximum heart rate of 147 beats per minute which was 103% of a calculated target heart rate of 142. She had a maximal blood pressure during exercise of 198/102 exhibiting hypertensive response to exercise. Rate pressure product was [address]. She had no arrhythmia, no chest pain or other concerning symptoms, no diagnostic EKG changes for ischemia. Echo images are pending. Impression: Subjectively negative, objectively negative EKG portion of this stress test. Hypertensive response to exercise. Follow up suggested: Patient discharged home in stable condition. We will await echo images to couple this for a full formal diagnostic. She will anticipate hearing from her ordering physician has results.
--- OUTSIDE RECORDS SUMMARY | 2024-12-02 13:45 | XMS_ITS | Encounter Summary ---
Author Organization [facility] Address [address] [place] [address] Care Team Providers Care Bilingual Call Center Representative Name Role Phone [facility] Primary Care Provider Liz Mena PA-C Unavailable [phone] Liz Mena PA-C Unavailable [phone] Encounter Details Date Type Department Care Team (Late st Contact Info) Description 04/09/2022 MyC Medical Advice [facility] [address] [address] Liz Mena PA-C [address] [place] [address] [id number] Social History Tobacco Use Types Packs/Day Years Used Date Smoking Tobacco: Never Smokeless Tobacco: Never Alcohol Use Standard Drinks/Week Comments Not Asked 0 (1 standard drink = 0.6 oz pur e alcohol) Comments No Sex and Gender Information Value Date Recorded Sex Assigned at Not on file 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
--- OUTSIDE RECORDS SUMMARY | 2024-12-02 13:45 | XMS_ITS | Clinical Summary ---
Author Organization [facility] Address [address] [place] [address] Care Team Providers Care Manufacturing Group Leader Name Role Phone [facility] Primary Care Provider Liz Mena PA-C Unavailable [phone] Allergies Active Allergy Reactions Criticality Noted Date [...] on file Legal Sex Female 3:14 AM CARBURETOR EXPERT Gender Identity Not on file Sexual Orientation Not on file Last Filed Vital Signs Vital Sign Reading Time Taken Comments Blood Pressure 127/89 04/04/2022 7:21 AM CDT Pulse 69 04/04/2022 7:21 AM CDT Temperature 36.6 C (97.8 F) 04/04/2022 7:21 AM CDT Respiratory Rate 18 04/04/2022 7:21 AM CDT [...] COLONOGRAPHY 1971 FIT 1971 FLEX SIG 1971 sDNA (Cologuard) 1971 YEARLY PREVENTIVE VISIT 1974 COLONOSCOPY 1981 COLORECTAL CANCER SCREENING 1981 HIV SCREENING 1986 HEPATITIS C SCREENING 1989 HEPATITIS B VACCINE (1 of 3 - 19+ 3-dose series) 1990 ZOSTER VACCINE (1 of 2) 1990 LIPID 2011 PNEUMOCOCCAL VACCINE 50+ YEARS (2 of 2 - PPSV23) 06/06/2015 04/11/2015 MAMMO SCREENING 04/20/2017 04/20/2015, 06/, 05/05/2012, Additional history exists COVID-19 VACCINE (3 - Moderna risk series) 07/03/2021 06/05/2021, 07/28/2020 PAP 05/08/2024 05/08/2021, 05/08/2021 PHQ-2 (once per calendar year) 2024 INFLUENZA VACCINE (Season Ended) 2025 03/22/2020, 05/01/2001, 05/01/2001 DIABETES SCREENING 03/31/2025 03/31/2022, 1 , 03/27/2022, Additional history exists DTAP/TDAP/TD VACCINE (2 - Td or Tdap) 03/25/2027 03/25/2017 HPV VACCINE Aged Out No longer eligi ble based on patient's age to complete this topic MENINGITIS VACCINE Aged Out No longer eligible based on patient's age to complete this topic Procedures Procedure Name Priority Date/Time Associated Diagnosis Comments BASIC METABOLIC PANEL Routine 03/31/2022 6:22 AM CDT MA DIAGNOSTIC BILATERAL W/ CAROLE Routine 04/20/2015 2:12 PM CARBURETOR EXPERT Breast pain from Last 3 Months or [...] - 20.0 mg/dL 03/31/2022 7:28 AM CDT [facility] Creatinine 0.78 0.51 - 0.95 mg/dL 03/31/2022 7:28 AM CDT [facility] Calcium 8.7 8.6 - 10.0 mg/dL 03/31/2022 7:28 AM CDT [facility] Glucose 86 70 - 99 mg/dL 03/31/2022 7:28 AM CDT [facility] GFR Estimate >90 >60 mL/min/1.7 3m2 03/31/2022 7:28 AM CDT [facility] Comment:Effective May 172020 eGFRcr in adults is calculated using the 2020 CKD-EPI creatinine equation which includes age and gender (Mack et al., NEJ, DOI: 10.1056/VDDUwq0393450) Blood STRUCTURE OF LEFT UPPER LIMB / Unknown Venipuncture / Unknown 03/31/2022 6:22 AM CDT 03/31/2022 7:02 AM CDT Elen Mederos MD LAB - BLOOD ORDERABLES Valentine l Result LABORATORY [facility] [address] Lab (1st floor, no room number) [place] [address], [facility] [phone] * MA Diagnostic Bilateral w/Carole (04/20/2015 2:12 PM CARBURETOR EXPERT) Anatomical Region Laterality Modality Breast Bilateral Mammography Impressions 04/20/2015 2:21 PM CARBURETOR EXPERT IMPRESSION: BI-RADS CATEGORY: 1 - NEGATIVE. RECOMMENDED FOLLOW-UP: Annual Mammography. ENEDELIA FLORES MD Narrative 04/20/2015 2:21 PM CARBURETOR EXPERT MA DIAGNOSTIC BILATERAL W/ CAROLE, US BREAST LEFT LIMITED 1-3 QUADRANTS 04/20/2015 2:12 PM HISTORY: Pain in left breast. No palpable lumps. COMPARISON: 11/23/13, 08/08/10 TECHNIQUE: Bilateral digital mammography with CAD is performed as well as bilateral DVT. In addition, directed left breast ultrasound was done. BREAST DENSITY: Scattered fibroglandular densities. BILATERAL MAMMOGRAM/DBT: No suspicious findings of malignancy. LEFT BREAST ULTRASOUND: [...] Most Recently Relevant to Health Maintenance Insurance BCBS OUT OF STATE [facility] CLAIMS MANAGEMENT Advance Directives For more information, please contact: [phone] * Full Code (Latest Code Status on File) Date Activated Date Inactivated Comments 03/28/2022 2:04 AM 04/04/2022 6:38 PM All basic and advanced life-sustaining interventions are performed as appropriate Question Answer Comments Code status determined by: Discussion with herman nt/ legal decision maker Care Teams Manufacturing Group Leader Relationship Specialty Start Date End Date Clinic, [address] [address] PCP - General 03/25/22 Liz Mena PA-C [address] [place] [address] Physician Slate Roofer Dermatology 04/05/22
--- OUTSIDE RECORDS SUMMARY | 2024-12-02 13:45 | XMS_ITS | Patient Health Record ---
Author Organization [facility] Address [address] [place] [address] Care Team Providers Care Roping Tender Name Role Phone Sylvie Abel Primary Care Provider Unavaila ble Hoffoss, Loretta Unavailable [phone] None, No PCP Unavailable Unavailable [facility], Mammography Unavailable Unav ailable Allergies Allergen (clinical drug ingredient) Drug/Non Drug Allergy documented on EMR Reaction Allergy Type Onset Date Status Ceftin Unknown Drug Allergy Active Trimox Unknown Drug Allergy Active Results Component Value Reference Range Notes Testosterone, Free (IH) Reviewed date:11/23/2024 10:12:14 AM Interpretation: Performing Lab: Notes/Report: Access 2 ([id number]), [facility] Sex Hormone Binding Globulin (IH) Reviewed date:11/23/2024 10:12:14 AM Interpretation: Performing Lab: Notes/Report: Access 2 ([id number]), [facility] Testosterone, Total (IH) Reviewed date:11/23/2024 10:12:14 AM Interpretation: Performing Lab: Notes/Report: Access 2 ([id number]), [facility] FSH Reviewed date:11/23/2024 10:12:14 AM Interpretation: Performing Lab:CATHERINE, [facility] [address], [place] Tigre Diaz Notes/Report: FSH 45.6 Reference Range Follicular Phase 2.5-10.2 Mid-cycle Peak 3.1-17.7 Luteal Phase 1.5- 9.1 Postmenopausal 23.0-116.3 DHEA SULFATE Reviewed date:11/23/2024 10:12:14 AM Interpretation: Performing Lab:[facility] [address], [place] Tigre Diaz Notes/Report: DHEA SULFATE 145 5-167 mcg/dL ESTRADIOL Reviewed date:11/23/2024 10:12:14 AM Interpretation: Performing Lab:[place] ALEXANDER-Andry Awcb8307 Andry Olivares[address] Tigre Shaffer Joe Notes/Report: ESTRADIOL 38 Reference Range Follicular Phase: 19-144 Mid-Cycle: 64-357 Luteal Phase: 56-214 Postmenopausal: < or = 31 Reference range established on post-pubertal patient population. No pre-pubertal reference range established using this assay. For any patients for whom low Estradiol levels are anticipated (e.g. males, pre-pubertal children and hypogonadal/post-menopausal females), the [employer] Mess[employer] [facility] Estradiol, Ultrasensitive, LCMSMS assay is recommended (order code [id number]). Please note: patients being treated with the drug fulvestrant (Faslodex(R)) have demonstrated significant interference in immunoassay methods for estradiol measurement. The cross reactivity could lead to falsely elevated estradiol test results leading to an inappropriate clinical assessment of estrogen status. [employer] Messaging order code [id number], Ultrasensitive LC/MS/MS demonstrates negligible cross reactivity with fulvestrant. THINPREP TIS AND HPV mRNA E6 /E7 W/ REFLEX 16, 18/45HPV Reviewed date:11/24/2024 05:54:58 PM Interpretation: Performing Lab:[place] DE [place] T[place]RE-Rslvbocgcc8469 Balta [facility]on[facility]iusroeldZO[address] Javon Bal Notes/Report: 0 CLINICAL INFORMATION: None g iven LMP: MENOPAUSE PREV. PAP: 2011 WNL PREV. BX: N/A SOURCE: Cervix, Endocer vix STATEMENT OF ADEQUACY: Satisfactory for evaluation. Endocervical/transformation zone component absent. INTERPRETATION/RESULT: Cytology Results: Negative for intraepithelial lesion or malignancy. COMMENT: This Pap test has been evaluated with computer assisted technology. RELATIONSHIP BANKER: ALIVIA TREADWELL(ASCP) CT Screening Location: [place] [id number] COMMENT EXPLANATORY NOTE: The Pap is a [...] mRNA E6/E7 Not Detected Not Detected Methodology: Bus Driver Supervisor-Mediated Amplification This assay detects E6/E7 viral messenger RNA (mRNA) from 14 high-risk HPV types (16,18,31,33,35,39,45,51,52,56 ,58,59,66,68). Cervical sources are required for HPV testing. If a vaginal source from a patient who has had a total hysterectomy with removal of cervix was submitted, please contact the testing laboratory for alternative testing options. For additional information, please refer to [email or web address]/faq/JWO546i9 (This link if provided for information/ educational purposes only.) Reason For Referral No Information Medications Medication SIG (Take, Route, Frequency, Duration) [...] MG Oral for 90 Days 10mg Active Problems Problem Type SNOMED Code ICD Code Onset Dates Problem Status W/U Status Risk Notes Problem Unspecified menopausal and perimenopausal disorder (N95.9) Active confirmed Problem 049249379 Vaginal atrophy (N95.2) Active confirmed Problem [id number] Menopausal sympt oms (N95.1) Active confirmed Problem Menopausal and postmenopausal disorder (N95.9) Active confirmed Vital Signs Blood pressure diastolic 70 mm Hg 11/22/2024 Height 63 in 11/22/2024 Blood pressure systolic 100 mm Hg 11/22/2024 Weight 242.2 lbs 11/22/2024 BMI 42.9 kg/m2 11/22/2024 Encounters Encounter Location Date Provider Diagnosis [facility] [address] [place] [address] [address] [place], [place] [id number] 11/22/2024 Loretta Hoffoss Menopausal and postmenopausal disorder N95.9 ; Encounter for annual routine gynecological examination Z01.419 and Chest pain R07.9 [facility] [address] [place] [address] 03/30/2024 Mammography [facility] Breast cancer screening Z12.31 [facility] [address] [place] [address] 11/11/2024 Loretta Jose Martin Assessments Encounter Date Diagnosis (ICD Code) Assessment Notes Treatment Notes Treatment Clinical Notes Section Notes 03/30/2024 Breast cancer screening (ICD-10 - Z12.31) 11/22/2024 Encounter for annual routine gynecological examination (ICD-10 - Z01.419) Pap today Mammogram up to date 11/22/2024 Menopausal and postmenopausal disorder (ICD-10 - N95.9) HRT labs today For now patient to continue on estradiol patch and progesterone orally 11/22/2024 Chest pain (ICD-10 - R07.9) Discussed this constellation of symptoms is very concerning for a possible heart attack. I advised patient to go directly to the ER. She agrees to call her PCP as soon as this appointment is over and discuss with triage. 11/22/2024 Other Plan Of Treatment No Information Insurance Providers Payer Name Payer Address Payer Phone Subscriber Number Group Number Insured Name Patient Relationship to Insured Coverage Start Date Coverage End Date BCBS - (Client Bill) [address] [place] [address] [id number] Judith Funes Self - patient is the insured Medical (General) History Surgical History Surgery Date(Month/Year) tonsillectomy 1978 Gall Bladder Removal 1985
--- OUTSIDE RECORDS SUMMARY | 2024-12-02 13:45 | XMS_ITS | Clinical Summary ---
[facility] Address [address], [place] [address] Care Team Providers Care Supervisor Varnish Name Role Phone Needs Pcp, Assignment Primary Care Provider [phone] Source Comments You are receiving this document as you are listed as the primary care provider,follow-up provider, or the patient has been referred to you for consultation.This is in compliance with the Medicare and[facility] EHR Incentive Program,which states Providers who transition their patient to another setting of careor provider of care or refers their patient to another provider of care shouldprovide summary care record for each transition of care or referral. [email or web address] Allergies Active Allergy Reactions Criticality Noted Date Comments Amoxicillin Throat Irritation High 03/07/2011 Cefuroxime Throat Irritation High 03/07/2011 Cephalosporins Penicillins Medications Etanercept 25 MG/0.5ML SOSY Inject 50 mg subcutaneously once a week. Indications: RHEUMATOID ARTHRITIS 1 Active lisinopril (AKA ZESTRIL) 20 MG tablet Take 20 mg by mouth daily (every 24 hours). Indications: HYPERTENSION 1 Active Active Problems Problem Noted Date Diagnosed Date Rheumatoid arthritis 11/20/2002 Overview (02/05/2017): Arthritis Rheumatoid Immunizations Immunization Administration Dates Next Due HepA, Unspecified Formulation 09/22/1995 Influenza, Unspecified Formulation 05/01/2001 YF (Yellow Fever) 09/22/1995 Family History Medical History Relation Name Comments Heart Disease Father Cancer, Kidney Mother Diabetes Paternal Aunt 1 Shavonne Diabetes Paternal Aunt 2 nakia Cataract Paternal Grandfather Glaucoma Paternal Grandmother Relation Name Status Comments Father Alive Mother Alive Paternal Aunt 1 Shavonne Alive Paternal Aunt 2 nakia Alive Paternal Grandfather Paternal Grandmother Social History Tobacco Use Types Packs/Day Years Used Date Smoking Tobacco: Never Smokeless Tobacco: Never Comments No Sex and Gender Information Value Date Recorded Sex Assigned at Not on file Legal Sex Female 4:58 AM CDT Gender Identity Not on file Sexual Orientation Not on file Last Filed Vital Signs Vital Sign Reading Time Taken Comments Blood Pressure 117/76 10/01/2018 8:17 AM CDT Pulse 90 10/01/2018 8:17 AM CDT Temperature 36.8 C (98.2 F) 10/01/2018 8:17 AM CDT Respiratory Rate 20 10/01/2018 8:17 AM CDT Oxygen Saturation 96% 10/01/2018 8:17 AM CDT Inhaled Oxygen Concentration - - Weight 120.7 kg (266 lb) 07/11/2015 1:36 PM NUT GRINDER Height 164.2 cm (5' 4.65) 07/11/2015 1:36 PM CS T Body Mass Index 44.75 07/11/2015 1:36 PM NUT GRINDER Plan of Treatment Health Maintenance Due Date Last Done Comments Cervical Cancer Screening Due 1971 Colon Cancer Screening Plan Due 1971 Hep C Screening (Preventive Services) 1971 Mammogram 1971 HIV Screening (Preventive Services) 1987 Adult Preventive Visit 1989 HepB Vaccine (1) 1990 HepA Vaccine (2 of 2 - Risk 2-dose series) 03/23/1996 09/22/1995 Cholesterol 2016 Pneumococcal Vaccine 50+ Yrs (2 of 2 - PCV) 2021 04/11/2015 Zoster/Shingles Vaccine (1 o f 2) 2021 COVID-19 Vaccine (2 - 2023-2 5 season) 2024 07/28/2020 Influenza Vaccine (Season Ended) 2025 03/22/2020, 05/01/2001 DTaP/Tdap/Td Vaccine (2 - Tdap) 03/25/2027 03/25/2017 Hib Vaccine Aged Out No longer eligi ble based on patient's age to complete this topic IPV (Polio) Vaccine Aged Out No longe r eligible based on patient's age to complete this topic MCV4 Vaccine Aged Out No longer eligi ble based on patient's age to complete this topic Meningococcal B Vaccine Aged Out No l onger eligible based on patient's age to complete this topic Insurance [facility] Care Teams Supervisor Varnish Relationship Specialty Start Date End Date Needs Pcp, [place] [address] PCP - General 07/11/15
--- OUTSIDE RECORDS SUMMARY | 2024-12-02 13:45 | XMS_ITS | Clinical Summary ---
Author Organization [facility] Address [address] [place] [address] Care Team Providers Care Optical Instrument Inspector Name Role Phone Sylvie Abel MD Primary Care Provider [phone] Allergies Active Allergy Reactions Criticality Noted Date Comments Cefuroxime Anaphylaxis 02/28/2012 Amoxicillin Anaphylaxis 02/28/2012 Medications aspirin 325 mg tabletIndicatio ns:Other chest pain Take 1 tablet by mouth once daily with a meal. Take until seen by psychologist military personnel or primary care physician for further instructions. 0 2 Active lisinopril (PRINIVIL; ZESTRIL) 20 mg tablet Take 20 mg by mouth once daily. Active etanercept (ENBREL) 50 mg/mL (0.98 mL) injectionIndica tions:rheumatoi d arthritis Inject 50 mg subcutaneous once weekly. Indications: RHEUMATOID ARTHRITIS Active Encounters Date Type Department Care Team Description 12/02/2024 1:00 PM CDT Ancillary Procedure [facility] & [address] [address] Arrived from Last 3 Months Social History Tobacco Use Types Packs/Day Years Used Date Smoking Tobacco: Never Alcohol Use Standard Drinks/Week Comments Yes 0 (1 standard drink = 0.6 oz pur e alcohol) occasional Comments No Sex and Gender Information Value Date Recorded Sex Assigned at Not on file Legal Sex Female 6:16 AM CIRCUS TRAINER Gender Identity Not on file Sexual Orientation Not on file Obstetrics History Last Filed Vital Signs Vital Sign Reading Time Taken Comments Blood Pressure 132/72 02/28/2012 9:00 AM CDT Pulse 90 02/28/2012 9:00 AM CDT Temperature 36.9 C (98.4 F) 02/28/2012 7:52 AM CDT Respiratory Rate 18 02/28/2012 8:00 AM CDT Oxygen Saturation 100% 02/28/2012 9:00 AM CDT Inhaled Oxygen Concentration - - Weight 111.1 kg (245 lb) 02/28/2012 7:52 AM CDT Height 167.6 cm (5' 6) 02/28/2012 7:52 AM CDT Body Mass Index 39.54 02/28/2012 7:52 AM CDT Plan of Treatment Health Maintenance Due Date Last Done Comments COVID-19 vaccine series (#1) 1976 Tdap 1982 Depression screening for age 12+ 1983 HIV for age 15-65 1986 BMI (ht and wt on same day) for age 18+ 1989 Hepatitis C screening for ag e 18-79 1989 Hepatitis B series for 19+ ( 1 of 3 - 19+ 3-dose series) 1990 Zoster (shingles) series for age 50+ (1 of 2) 1990 Tetanus booster 1991 Colonoscopy through age 75 2016 Lipids for age 45-75 2016 Mammogram for age 45-75 2016 Pneumococcal series for age 50+ (1 of 1 - PCV) 2021 Pap test for age 21-65 05/08/2024 , 05/08/2021, 05/28/2018, Additional history exists Influenza Vaccine (Season Ended) 2025 Procedures Procedure Name Priority Date/Time Associated Diagnosis Comments HPV HIGH RISK Routine 05/08/2021 6:40 PM CIRCUS TRAINER from Last 3 Months or Most Recently Relevant to Health Maintenance Results * HPV HIGH RISK (05/08/2021 6:40 PM CIRCUS TRAINER) TYPE 16 Negative Negative 05/14/2021 5:08 PM CIRCUS TRAINER [facility] [employer] [facility] TYPE 18 Negative Negative 05/14/2021 5:08 PM CIRCUS TRAINER [facility] [employer] OTHER HIGH RISK TYPES Negative Negative 05/14/2021 5:08 PM CIRCUS TRAINER [facility] Other (Cervical/Vagina l) 05/08/2021 6:40 PM CIRCUS TRAINER 05/11/2021 9:19 AM CIRCUS TRAINER Narrative [facility] - 05/14/2021 5:08 PM CIRCUS TRAINER HPV types 16, 18, 31, 33, 35, 39, 45, 51, 52, 56, 58, 59, 66 and 68 DNA were undetectable or below the pre-set threshold. Methodology: Jalen Marla 4800 HPV Test us Sylvie Abel MD MICROBIOLOGY Final Resu lt [facility] [address] [place] [address], from Last 3 Months or Most Recently Relevant to Health Maintenance [place] [address] Care Teams Optical Instrument Inspector Relationship Specialty Start Date End Date Sylvie Abel [place] [address] [place] [address] PCP - General 07/06/19
--- OUTSIDE RECORDS SUMMARY | 2024-12-02 13:45 | XMS_ITS | Data Portability ---
Author Organization [place] - [facility], Main Office Address [address] [place] [address] Assessment Encounter Date Assessment Date Assessment LastModified by Organization Details LastModified Time 10/14/2022 10/14/2022 1. 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 She can use topical steroids on the weekends as needed. We reviewed rotational therapy Warned of diarrhea Follow-up annually. She has been now followed by rheumatology they have her on Orencia. API-69 Not available 10/14/2022 19:11:04 10/20/2023 10/20/2023 Subjective Judith Funes, a 53-year-old female patient, presents today with a primary complaint of psoriasis. The onset of her psoriasis was last year, for which she was hospitalized for seven to eight days. She reports that her health has been generally good since we started treatment, noting a significant improvement in her condition. She describes occasional prickling sensations but otherwise expresses satisfaction with her current treatment regimen. She has been using two creams, one she refers to as 'Cuco' and the other as 'Chevy', which I prescribed. However, she admits to discontinuing the use of the 'Cuco' cream due to concerns about potential exposure to her boyfriend. She also mentions that she has been in a relationship with her boyfriend for six years. Social History The patient is in a stable, long-term relationship. 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 She does not smoke and has never smoked. Family History To the best of the patient's knowledge, there is no family history of psoriasis. Past Medical History ---- 1. Psoriasis diagnosed last year 2. Hospitalized for seven to eight days due to severe psoriasis 3. History of Rheumatoid Arthritis (RA), previously managed with Enbrel for many years 4. Current RA management with Orencia, after a switch from Enbrel 5. Post-menopausal Review of Systems - - Dermatological: Reports occasional prickling sensations associated with psoriasis. Notes a significant improvement in her condition since the onset of treatment. - Respiratory: No reported issues. - Cardiovascular: No reported issues. - Gastrointestinal : No reported issues. - Neurological: No reported issues. - Musculoskeletal: History of Rheumatoid Arthritis, currently managed with Orencia. - Endocrine: Post-menopausal. Physical Exam Upon examination, the patient appears to be in good health, presenting as a pleasant 53-year-old female. Her skin is largely clear with very mild pinkness observed at the upper nasolabial folds around the alar crease. There is a small, shiny bump about 3 millimeters in size on the left ala, which appears to have been previously worked on due to a slight depression at the ring. Additionally, at the top of the philtrum, there is a one and a half millimeter flesh-colored firm papule. These are likely angiofibromas, also known as fibrous papules of the nose. Assessment 1. The patient has a history of severe pustular psoriasis, likely exacerbated by previous use of Enbrel. 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 2. The patient presents with seborrheic dermatitis, which has manifested over the past two months in the nasolabial fold area. This is likely a combination of dandruff and psoriasis, a condition referred to as sebopsoriasis. 3. The patient has angiofibromas, also known as fibrous papules of the nose. These are benign and pose no immediate health risk. Plan ---- - Continue with current medication regimen, including the use of the topical steroid cream (Cuco) as needed and the maintenance therapy (Chevy). - Encourage the patient to continue using the Chevy cream, as it is now FDA approved for treating both psoriasis and seborrheic dermatitis. This should help keep the seborrheic dermatitis in the nasolabial folds under control. - Advise the patient that the angiofibromas on her nose are benign and pose no immediate health risk. If they become more bothersome in the future, we can discuss potential treatment options. - Schedule a follow-up appointment for one year from now to monitor the patient's psoriasis and overall skin health. Thank you for allowing me to participate in this patient's care. Note reviewed and corrected, content approved, and assessment and plan were completed by me. total time today 31 minutes apappa Not available 10/20/2023 10:22:24 Plan of Treatment Reminders Order Date Submit Date Provider Last Modified By Organization Details Last Modified Time Details Appointments None recorded. Lab None recorded. Referral None recorded. Procedures None recorded. Surgeries None recorded. Imaging None recorded. Medication Orders triamcinolo ne acetonide 0.5 % topical cream [address] [id number], [address] [place], [address], 4 10:21:56 Zoryve 0.3 % topical cream [address]/[facility] #[id number], [address] [place], [address], 4 21:45:07 Zoryve 0.3 % topical cream 2022 023 [facility], [address] [place] [address], [address], 3 10:17:35 triamcinolo ne acetonide 0.5 % topical cream [address] [facility] #[id number], [address] [place], [address], 10:17:35 Patient TargetsNo targets recorded. Patient Instructions Encounter Date Encounter Id Patient Instructions Last Modified By Organization Details Last Modified Time 10/14/2022 [id number] psoriasis: care instructions Not available 10/14/2022 10:17:31 10/20/2023 [id number] psoriasis: care instructions Not available 10/20/2023 10:21:50 seborrheic dermatitis: care instructions Not available 10/20/2023 10:21:50 Reason for Referral None Reported. Medical Equipment None Reported. Allergies Allergen ID Allergen Name Allergen Category Reaction Reaction Severity Criticality Documentation Date Start Date Code Code System Note Provider Name and Address Organization Details Recorded Time 4570 Ceftin medicatio n Not available Not available Not available 10/14/2022 28128 6 RxNorm Not Available [facility] 3 10:02:00 4571 Miralax medicatio n Not available Not available Not available 10/14/2022 81621 5 RxNorm Not Available [facility] 3 10:02:18 4572 sulbactam medicatio n Not available Not available Not available 10/14/2022 05294 RxNorm Not Available [facility] 3 10:02:44 Medications Name Sig Start Date Stop Date Status Note LastModified by Organization Details LastModified Time doxycycline hyclate 100 mg capsule TAKE 1 TABLET BY MOUTH TWICE A DAY FOR 7 DAYS 10/14 completed Not Available Not Available Not Available triamcinolo ne acetonide 0.5 % topical cream APPLY A THIN LAYER TO THE AFFECTED AREA(S) BY TOPICAL ROUTE 2 TIMES PER DAY WEEKENDS 2023 active Not Available Not Available Not Avai lable azithromyci n 250 mg tablet 10/14 completed Not Available Not Available Not Available valacyclovi r 1 gram tablet 10/14 completed Not Available Not Available Not Available lisinopril 20 mg tablet TAKE 1 TABLET BY MOUTH ONCE A DAY active Not Available Not Available No t Available estradiol 0.05 mg/24 hr semiweekly transdermal patch 1 APPLICATI ON TO SKIN TRANSDERM AL TWO TIMES A WEEK 90 DAYS active Not Available Not Available No t Available sulfamethox azole 800 mg-trimetho prim 160 mg tablet TAKE 1 TABLET BY MOUTH TWICE A DAY 10/14 completed Not Available Not Available Not Available tramadol 50 mg tablet 10/14 completed Not Available Not Available Not Available triamcinolo ne acetonide 0.1 % topical cream 1 APPLIC TOPICALLY THREE TIMES A DAY NEEDED FOR ECZEMA active Not Available Not Available No t Available terbinafine HCl 250 mg tablet 10/14 completed Not Available Not Available Not Available betamethaso ne valerate 0.1 % topical cream APPLY TO AFFECTED AREA TWICE A DAY NEEDED active Not Available Not Available No t Available clotrimazol e-betametha sone 1 %-0.05 % topical cream 10/14 completed Not Available Not Available Not Available estradiol 0.01% (0.1 mg/gram) vaginal cream INSERT 0.5 G DAILY FOR 14 DAYS AND THEN TWICE WEEKLY active Not Available Not Available No t Available ketoconazol e 2 % topical cream APPLY TOPICALLY TWICE DAILY 10/14 completed Not Available Not Available Not Available progesteron e micronized 100 mg capsule 2 CAPSULES AT BEDTIME ORALLY NIGHTLY 90 DAYS active Not Available Not Available No t Available Enbrel SureClick 50 mg/mL (1 mL) subcutaneou s pen injector 10/14 completed Not Available Not Available Not Available Orencia ClickJect 125 mg/mL subcutaneou s auto-inject or active Not Available Not Available Not Available Zoryve 0.3 % topical cream APPLY TO THE AFFECTED AREA(S) BY TOPICAL ROUTE ONCE DAILY 2023 active Not Available Not Available Not Avai lable Vitals None Recorded Social History None recorded. Functional Status None recorded. Mental Status None recorded. Family History Nothing Reported. Medical History No medical history recorded. Gynecological HistoryNo gynecological history recorded. Obstetrics History GPAL:G 0 P 0 0 0 0 Past Encounters Encounter ID Performer Location Encounter Start Date Encounter Closed Date Diagnosis/Indication Diagnosis SNOMED-CT Code Diagnosis ICD10 Code Diagnosis Note [id number] Maranda Driver MD Main Office [address] [place] [address] 10/14/2022 09:57:21 10/14/2022 23:00:35 Psoriasis 9665127 L40.9 [id number] Maranda Driver MD Main Office [address] ,[place] [address] 10/20/2023 09:36:09 10/20/2023 10:23:29 Seborrheic dermatitis 20636849 L21.9 Psoriasis 2216301 L40.9 Angiofibroma 854923280 D 36.9 Health Concerns Section Related Observation LastModified by Organization Detai ls LastModified Time None Recorded Concern Status LastModified by Organization Details LastModified Time None Recorded Advance Directives Directive None Recorded Payers Insurance Date Sequence Insurance Name Policy Number Policy Harrison Covered Member ID Harrison Member ID Guarantor Name 10/17/2023 1 [place] [id number] 2 Judith Funes [id number] 59 Judith Karimi Gwendoline Piper 10/14/2022 1 [place] [id number] 2 Judith Funes [id number] Judith Costelloendkiara Funes Notes Date Note Type Note Provider Name and Address Organization Details Recorded Time 10/14/2022 text/html 52-year-old know n to me with a history of severe psoriasis in the mons pubis we referred her to rheumatology she is now on Orencia she is now off of any systemics we have given her such as Enbrel. She feels as Areva is helping Past medical history is otherwise unchanged She is having no side effects from the Orencia its only been 1 or 2 doses. He does feel much better about a rash She is having no diarrhea noted from the surgery Past medical history family tree and social history unchanged since her visit at [facility] Maranda Dirver MD [address] [place], [address], [facility] - [facility] 10/14/2022 22:59:48 OBGyn Episode No OBEpisode recorded.
--- OUTSIDE RECORDS SUMMARY | 2024-12-02 13:45 | XMS_ITS | Encounter Summary ---
Author Organization [facility] Address [address] [place] [id number] Care Team Providers Care Hospital Fellow Name Role Phone Needs Pcp, Assignment Primary Care Provider [phone] Encounter Details Date Type Department Care Team (Latest Contact Info) Description 09/22/1995 Orders Only [place] Social History Tobacco Use Types Packs/Day Years Used Date Smoking Tobacco: Never Assessed Comments Unknown Sex and Gender Information Value Date Recorded Sex Assigned at Not on file Legal Sex Female 4:58 AM CDT Gender Identity Not on file Sexual Orientation Not on file documented as of this encounter Plan of Treatment Not on file documented as of this encounter Visit Diagnoses Not on filedocumented in this encounter Care Teams Hospital Fellow Relationship Specialty Start Date End Date Needs Pcp, Kiley SU[facility] [place] [address] PCP - General 07/11/15 documented as of this encounter
== END 2024-12-02 13:42 | disposition home or self-care (01) ==
LOC: STRESS 12:51
PROVIDERS: PCP Emergency Medicine; Visit Provider Emergency Medicine
DX: R07.9 Chest pain, unspecified (principal)
CPT/HCPCS: 93016; 93325; 93351

== ENCOUNTER 2024-12-22 07:42 | Outpatient (CLI) | payer BC, SELFPAY | END 2024-12-22 07:43 | disposition home or self-care (01) | LOC: RAD 07:43 | PROVIDERS: PCP Emergency Medicine; Visit Provider Emergency Medicine | DX: I77.810 Thoracic aortic ectasia (principal) | CPT/HCPCS: 93306 ==

== ENCOUNTER 2025-02-22 10:40 | Outpatient (CLI) | payer BC, SELFPAY | END 2025-02-22 10:41 | disposition home or self-care (01) | LOC: NFLDREF 02-28 07:08 | PROVIDERS: PCP Family Medicine; Referring Provider Emergency Medicine; Visit Provider Family Medicine | DX: Z00.00 Encounter for general adult medical examination without abnormal findings (principal); Z13.220 Encounter for screening for lipoid disorders; Z13.1 Encounter for screening for diabetes mellitus; I10 Essential (primary) hypertension; M06.9 Rheumatoid arthritis, unspecified; I77.810 Thoracic aortic ectasia; E78.5 Hyperlipidemia, unspecified | CPT/HCPCS: 80053; 80061 ==